=== PATIENT | male | born 1985 ===

== ENCOUNTER 2020-03-07 17:10 | Emergency (ER) | payer BC ==
--- NOTE | 2020-03-07 17:30 | EDM.PDOC ---
ED HPI GENERAL MEDICAL PROBLEM - General Chief Complaint: Lower Extremity Injury/Pain Stated Complaint: R LEG INJURY Time Seen by Provider: 03/07/20 17:23 Source of Information: Reports: Patient History Limitations: Reports: No Limitations - History of Present Illness INITIAL COMMENTS - FREE TEXT/NARRATIVE: Patient is a 34-year-old male who presents to the emergency department with right lower extremity pain. He was kicked in the ram[place]andran by a Yearling around 9: 00 this morning. He has been able to walk on the extremity, however it is somewhat painful. He is concerned because the pain is radiating into his calf. He has been kicked in the leg previously but has never had pain in the calf associated with it. He took ibuprofen prior to coming ER and states it did help with the pain. He denies any previous fractures to this extremity. Right Lower Leg Pain Score (Numeric/FACES): 4 - Related Data Allergies Allergy/AdvReac Type Severity Reaction Status Date / Time No Known Allergies Allergy Verified 03/07/20 17:22 Home Meds: Home Meds . [No Known Home Meds] 03/07/20 [History] Past Medical History - Past Health History Medical/Surgical History: Denies Medical/Surgical History Social & Family History - Tobacco Use Smoking Status *Q: Never Smoker Second Hand Smoke Exposure: No - Caffeine Use Caffeine Use: Reports: Coffee - Recreational Drug Use Recreational Drug Use: No Review of Systems - Review of Systems Review Of Systems: Comprehensive ROS is negative, except as noted in HPI. ED EXAM, GENERAL - Physical Exam Exam: See Below Exam Limited By: No Limitations General Appearance: Alert, WD/WN, No Apparent Distress Respiratory/Chest: No Respiratory Distress, Lungs Clear, Normal Breath Sounds, No Accessory Muscle Use, Chest Non-Tender Cardiovascular: Normal Peripheral Pulses, Regular Rate, Rhythm, No Edema, No Gallop, No JVD, No Murmur, No Rub Extremities: Other (Mild edema to the right lateral aspect of the right lower leg. No ecchymosis or obvious deformity. CMS is intact distal to the injury.) Neurological: Alert, Oriented, CN II-XII Intact, Normal Cognition, Normal Gait, Normal Reflexes, No Motor/Sensory Deficits Psychiatric: Normal Affect, Normal Mood Skin Exam: Warm, Dry, Intact, Normal Color, No Rash Course - Vital Signs Last Recorded V/S: Last Vital Signs Temp 98.3 F 03/07/20 17:20 Pulse 72 03/07/20 17:20 Resp 16 03/07/20 17:20 BP 153/98 H 03/07/20 17:20 Pulse Ox 97 03/07/20 17:20 - Orders/Labs/Meds Orders: Active Orders 24 hr Category Date Time Status Tibia Fibula Rt [CR] Stat Exams 03/07/20 17:27 Taken - Re-Assessments/Exams Free Text/Narrative Re-Assessment/Exam: 03/07/20 18:42 X-ray of the right lower extremity was negative for any fractures. Benedicto wrap was applied to the extremity. Recommend ice and elevation. Discharge instructions as documented. Departure - Departure Time of Disposition: 18:42 Disposition: Home, Self-Care 01 Condition: Good Clinical Impression: Contusion Qualifiers: Encounter type: initial encounter Contusion area: lower leg Laterality: right Qualified Code(s): S80.11XA - Contusion of right lower leg, initial encounter - Discharge Information *PRESCRIPTION DRUG MONITORING PROGRAM REVIEWED*: No *COPY OF PRESCRIPTION DRUG MONITORING REPORT IN PATIENT RASHIDA: No Referrals: PCP,None [Primary Care Provider] - Forms: ED Department Discharge Additional Instructions: You were seen in the emergency department today for right lower leg pain after being kicked by a Yearling. X-rays were completed and showed no acute fractures. It is likely that you have a contusion of the tissues in the lower extremity. Benedicto wrap has been applied for comfort. Recommend that you ice and elevate the extremity when at rest. You may use Tylenol or ibuprofen as needed for pain. Recommend that you monitor the area for excessive swelling. If you begin to have increased pain out of proportion to the injury, your foot appears pale, and/or the skin of your lower extremity is excessively tight, please return to the emergency department immediately for reevaluation. Sepsis Event Note - Evaluation Sepsis Screening Result: No Definite Risk - Focused Exam Vital Signs: Vital Signs Temp Pulse Resp BP Pulse Ox 03/07/20 17:20 98.3 F 72 16 153/98 H 97 Date Exam was Performed: 03/07/20 Time Exam was Performed: 18:42 - My Orders Last 24 Hours: My Active Orders 03/07/20 17:27 Tibia Fibula Rt [CR] Stat - Assessment/Plan Last 24 Hours: My Active Orders 03/07/20 17:27 Tibia Fibula Rt [CR] Stat
--- NOTE | 2020-03-08 06:41 | CR ---
Right tibia and fibula: AP and lateral views of the right tibia and fibula were obtained. Soft tissue swelling is identified. No fracture or other bony abnormality is identified. Impression: 1. Soft tissue swelling. No acute bony abnormality is identified. Diagnostic code #2 This report was dictated in MDT
== END 2020-03-07 18:55 | disposition home or self-care (01) ==
LOC: JD.ED 17:10
DX: S80.11XA Contusion of right lower leg, initial encounter (principal); W22.8XXA Striking against or struck by other objects, initial encounter
CPT/HCPCS: 73590-26-RT; 73590-RT; 99282; 99283-25